=== PATIENT | female | born 1990 | race Caucasian/White ===

== ENCOUNTER → 2024-06-06 | Outpatient (CLI) | payer MEDICAID, SELFPAY ==
[2024-06-11 23:06] LABS: Beef <0.10 kU/L (Class 0); Chicken <0.10 kU/L (Class 0); Clam <0.10 kU/L (Class 0); Codfish <0.10 kU/L (Class 0); Corn <0.10 kU/L (Class 0); Egg, White <0.10 kU/L (Class 0); Egg, Whole <0.10 kU/L (Class 0); Gluten <0.10 kU/L (Class 0); Milk (Cow) <0.10 kU/L (Class 0); Oat <0.10 kU/L (Class 0); Peanut <0.10 kU/L (Class 0); Pork <0.10 kU/L (Class 0); Potato, White <0.10 kU/L (Class 0); Rice <0.10 kU/L (Class 0); SCALLOP <0.10 kU/L (Class 0); SESAME SEED <0.10 kU/L (Class 0); Salmon <0.10 kU/L (Class 0); Shrimp <0.10 kU/L (Class 0); Soybean <0.10 kU/L (Class 0); Tuna <0.10 kU/L (Class 0); Turkey <0.10 kU/L (Class 0); Walnut, (Food) <0.10 kU/L (Class 0); Wheat <0.10 kU/L (Class 0); Yeast <0.10 kU/L (Class 0)
== END | disposition home or self-care (01) ==
LOC: LAB 15:57
PROVIDERS: Referring Provider Otolaryngology; Visit Provider Otolaryngology
DX: T78.40XA Allergy, unspecified, initial encounter (principal); X58.XXXA Exposure to other specified factors, initial encounter
CPT/HCPCS: 36415; 86003